=== PATIENT | male | born 1960 | race Caucasian/White ===

== ENCOUNTER 2017-06-13 00:56 | Observation (INO) | payer OTHER ==
--- NOTE | 2017-06-13 01:10 | ED.PDOC ---
History of Present Illness - General Chief Complaint: Chest Pain/[place] Stated Complaint: chest pain Time Seen by Provider: 06/13/17 01:08 Source: patient, Vital Signs reviewed Exam Limitations: no limitations - History of Present Illness Initial Comments: Fadi Mancera 56 y/o male stated that he had chest tightness which started about 10 pm tonight as he was about to go to sleep which comes and goes radiating to his left arm.No diaphoresis,no sob,no N/V He stated just arrived from [facility]. Timing/Duration: 4-6 hours Severity: moderate Location: other - left chest Activities at Onset: rest Prior Chest Pain/Cardiac Workup: no prior chest pain, no prior cardiac workup Worsening Factors: nothing Nitro Today/Relief: no nitro taken today, provided by ED Aspirin Treatment Today: no aspirin today, provided by ED Associated Symptoms: denies symptoms Allergies/Adverse Reactions: Allergies Codeine Adverse Reaction (Verified 06/13/17 01:24) Home Medications: Ambulatory Orders Nf Plexus 1 each PO DAILY 06/13/17 Review of Systems - Review of Systems Constitutional: States: no symptoms reported EENTM: States: no symptoms reported Respiratory: States: no symptoms reported Cardiology: States: see HPI Gastrointestinal/Abdominal: States: no symptoms reported Genitourinary: States: no symptoms reported Musculoskeletal: States: no symptoms reported Skin: States: no symptoms reported Neurological: States: no symptoms reported Endocrine: States: no symptoms reported Hematologic/Lymphatic: States: no symptoms reported Past Medical History (General) - Patient Medical History Hx Congestive Heart Failure: No Hx Diabetes: No Hx Other PMH: Yes - elevated cholesterol corrected by diet Surgical History: other - hernia repair - Social History Hx Tobacco Use: No Hx Chewing Tobacco Use: No - Activities of Daily Living Patient Lives Alone: No - family Family Medical History - Family History Mother Family History: Unknown Hx Cardiac Disease: Yes - CAD/TX-mom;[id number] 70 Hx Family Diabetes: Yes - mom Physical Exam - Physical Exam General Appearance: Alert, No apparent distress Eyes, Ears, Nose, Throat Exam: PERRL/EOMI, normal ENT inspection Neck: non-tender, full range of motion Respiratory: chest non-tender, lungs clear, normal breath sounds Cardiovascular/Chest: normal peripheral pulses, regular rate, rhythm, no gallop , no JVD, no murmur Peripheral Pulses: radial,right: 1+, radial,left: 1+ Gastrointestinal/Abdominal: normal bowel sounds, non tender, soft Extremity: normal range of motion, non-tender, normal inspection, no pedal edema , no calf tenderness Neurologic: no motor/sensory deficits, alert, oriented x 3 Skin Exam: normal color, warm/dry Lymphatic: no adenopathy Progress - Progress Progress: 06/13/17 02:10 Vital Signs - 8 hr 06/13/17 06/13/17 06/13/17 00:56 01:00 01:10 Temperature 99.2 F Pulse Rate 90 90 89 Pulse Rate [ 90 90 89 monitor] Respiratory 20 20 Rate Blood Pressure 123/81 [Right Arm] O2 Sat by Pulse 90 L Oximetry 06/13/17 06/13/17 01:32 02:00 Temperature Pulse Rate Pulse Rate [ 95 H 84 monitor] Respiratory 18 14 Rate Blood Pressure 136/75 126/79 [Right Arm] O2 Sat by Pulse 95 94 L Oximetry 06/13/17 01:10 URINE DRUG SCREEN, 7 ASSAY Stat Chest,1 View [RAD] Stat URINALYSIS Stat 06/13/17 01:13 IV Care:Saline Lock per Protoc QSHIFT 06/13/17 01:15 EKG STAT Laboratory Results - last 24 hr 06/13/17 06/13/17 01:10 01:10 WBC 6.2 RBC 4.53 L Hgb 15.7 Hct 44.4 MCV 97.9 H MCH 34.6 H MCHC 35.4 RDW 13.1 Plt Count 188 MPV 8.6 Absolute Neuts (auto) 2.90 Absolute Lymphs (auto) 2.30 Absolute Monos (auto) 0.60 Absolute Eos (auto) 0.40 Absolute Basos (auto) 0.10 Neutrophils % 47.1 Lymphocytes % 36.7 Monocytes % 9.3 H Eosinophils % 5.9 H Basophils % 1.0 PT 10.8 INR 0.960 PTT (SP) 30.6 D-Dimer, Quantitative < 230 Sodium 138 Potassium 3.8 Chloride 103 Carbon Dioxide 27 Anion Gap 11.8 L BUN 17 Creatinine 0.99 BUN/Creatinine Ratio 17.2 Random Glucose 185 H Serum Osmolality 282.0 Calcium 8.8 Magnesium 2.5 Total Bilirubin < 0.2 L Direct Bilirubin < 0.1 Indirect Bilirubin 0.1 L AST 31 ALT 27 Alkaline Phosphatase 68 Creatine Kinase 79 CK-MB (CK-2) 1.5 CK-MB (CK-2) % Not Reportable Troponin I < 0.02 Serum Total Protein 6.7 Albumin 4.1 - Results/Orders Results/Orders: 06/13/17 01:10 URINE DRUG SCREEN, 7 ASSAY Stat URINALYSIS Stat 06/13/17 01:13 IV Care:Saline Lock per Protoc QSHIFT 06/13/17 01:15 EKG STAT Laboratory Results - last 24 hr 06/13/17 06/13/17 06/13/17 01:10 01:10 02:30 WBC 6.2 RBC 4.53 L Hgb 15.7 Hct 44.4 MCV 97.9 H MCH 34.6 H MCHC 35.4 RDW 13.1 Plt Count 188 MPV 8.6 Absolute Neuts (auto) 2.90 Absolute Lymphs (auto) 2.30 Absolute Monos (auto) 0.60 Absolute Eos (auto) 0.40 Absolute Basos (auto) 0.10 Neutrophils % 47.1 Lymphocytes % 36.7 Monocytes % 9.3 H Eosinophils % 5.9 H Basophils % 1.0 PT 10.8 INR 0.960 PTT (SP) 30.6 D-Dimer, Quantitative < 230 Sodium 138 Potassium 3.8 Chloride 103 Carbon Dioxide 27 Anion Gap 11.8 L BUN 17 Creatinine 0.99 BUN/Creatinine Ratio 17.2 Random Glucose 185 H Serum Osmolality 282.0 Calcium 8.8 Magnesium 2.5 Total Bilirubin < 0.2 L Direct Bilirubin < 0.1 Indirect Bilirubin 0.1 L AST 31 ALT 27 Alkaline Phosphatase 68 Creatine Kinase 79 CK-MB (CK-2) 1.5 CK-MB (CK-2) % Not Reportable Troponin I < 0.02 < 0.02 Serum Total Protein 6.7 Albumin 4.1 - EKG/XRAY/CT EKG: Sinus, no ST T wave changes Comments: Heart rate -86 XRAY: chest - no acute abnormalities Departure - Departure Clinical Impression: Chest pain Qualifiers: Chest pain type: unspecified Qualified Code(s): R07.9 - Chest pain, unspecified Time of Disposition: 03:10 - D/W Dr. Almanzar-Hospitalist Disposition: Admit Patient Condition: Good Referrals: Rodrigo Moreno MD [Primary Care Provider] - 1-2 Weeks Home Medications: Ambulatory Orders Nf Plexus 1 each PO DAILY 06/13/17
[2017-06-13] MEDS ORDERED: ASPIRIN (CHEWABLE) 81 MG TAB PO ONE (01:13)
[2017-06-13] MEDS ORDERED: NITROGLYCERIN 0.4 MG 25 EA TAB SL ONE ×2 (01:13→02:15)
--- NOTE | 2017-06-13 02:11 | RAD ---
Procedure: XR CHEST 1 VIEW Exam Date: 06/13/2017 Ordering Provider: Bar Begum Clinical Indication: Chest pain Comparison: January 16, 2015 Findings: Cardiac silhouette: Magnified by technique Pulmonary vasculature : Normal Mediastinal contour: Normal Aortic contour: Normal Focal lung consolidation: No focal lung consolidation. Left basilar subsegmental atelectasis/scarring. Pleural effusion: None Pneumothorax: None Acute bony or soft tissue abnormality: None Impression: 1. No acute abnormalities in the chest. Electronically signed by: Chacho Delarosa MD 06/13/2017 2:10 AM CDT
[2017-06-13] MEDS ORDERED: ACETAMINOPHEN 325 MG TAB PO PRN (03:43)
[2017-06-13] MEDS ORDERED: NITROGLYCERIN 0.4 MG 25 EA TAB SL PRN (03:43)
[2017-06-13] MEDS ORDERED: SODIUM CHLORIDE 0.9% (FLUSH) 10 ML SYG IV PRN (03:43)
[2017-06-13] MEDS ORDERED: MORPHINE SULFATE INJ 10 MG/ML VIAL IV PRN (03:43)
--- NOTE | 2017-06-13 03:53 | PCM.CORE ---
Physician DVT/VTE - 3-4 High Risk Treatments: Sequential Compression Device Pharmacological: Enoxaparin 40 mg SQ Daily
[2017-06-13] MEDS ORDERED: IV SET AND CAP CHANGE INJ INJ SCH (04:00)
[2017-06-13] MEDS: SUCRALFATE 1 GM/10 ML 1 GM UD PO SCH ×2 (06:28→10:11)
[2017-06-13] MEDS ORDERED: OMEPRAZOLE CAP 20 MG CAP PO SCH (06:30)
[2017-06-13] MEDS ORDERED: SODIUM CHLORIDE 0.9% (FLUSH) 10 ML SYG IV SCH (09:00)
[2017-06-13 09:29] VITALS: O2SAT 96
[2017-06-13 14:03] VITALS: BP 119/77; TEMP 99
--- NOTE | 2017-06-13 20:43 | SSS ---
SUPERVISING PHYSICIAN: Andres Almanzar M.D. DIAGNOSIS AT DISCHARGE: 1. Atypical chest pain, unknown etiology with no evidence of acute myocardial infarction. 2. Hyperlipidemia. 3. History of allergies treated with monthly allergy shots. HISTORY OF PRESENT ILLNESS: Mr. Mancera is a 56 year-old male patient that presented to the Emergency Room early in the morning of 06/13/17 complaining of chest pain described as chest tightness that started Tuesday night as he was going to sleep that noted that the pain had radiated to his left arm. He denied any diaphoresis, shortness of breath or nausea or vomiting. It was noted that he did have a history of recent travel to [place] to see some grandkids travelling well over [address], but denied any lower extremity pain or shortness of breath. Laboratory studies in the Emergency Department initially showed troponin less than 0.02 with EKG showing no acute changes. Given the patient's symptomology and having resolved the pain with a single Nitro, Dr. Begum, E. R. physician, requested the patient be placed in admission for further serial cardiac enzymes to rule out an acute myocardial infarction. The patient was placed in Observation in stable condition. PAST MEDICAL HISTORY: 1. Seasonal allergies. PAST SURGICAL HISTORY: 1. Hernia repair. 2. Colonoscopy. HOME MEDICATIONS: 1. NF Plexus 1 daily. ALLERGIES: CODEINE. FAMILY HISTORY: Positive for cardiovascular disease both in his mother and father. SOCIAL HISTORY: The patient denies ever drinking or smoking. 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 Denies any illicit drug use. REVIEW OF SYSTEMS: CONSTITUTIONAL: The patient denied any fevers or chills. HEENT: Denies any headaches. Does have a history of seasonal allergies for which he gets shots monthly for. No nasal congestion. No nasal drainage. RESPIRATORY: No shortness of breath, cough, sputum production. CARDIOVASCULAR: As noted in the history of present illness. GASTROINTESTINAL: Denies any nausea, vomiting or diarrhea. GENITOURINARY: Denies any dysuria, hematuria or other urinary symptoms. MUSCULOSKELETAL: Denies any symptoms. NEUROLOGIC: Denies any focalizing or otherwise neurological deficits. PHYSICAL EXAMINATION: VITAL SIGNS: On admission to the examination revealed showed temperature 99.2, pulse 98, blood pressure 123/81, respirations 20, satting 90% on room air. At discharge, vital signs showed to be stable with pulse 74, blood pressure 119/77 , temperature 99, satting 96% on nasal cannula at room air with ambulatory studies showing saturations 95% on room air. Admission weight 108.2 kg. GENERAL: The patient appears on examination on the Medical/Surgical floor to be in no acute distress, resting. Well hydrated, well nourished. HEENT: Tympanic membranes were clear bilaterally. Oropharynx was pink and moist without any lesions. NECK: There is no jugular venous distention. Supple, non-tender with full range of motion. CHEST: Clear to auscultation without any wheezing, rhonchi or rales. CARDIOVASCULAR: Heart was regular rate and rhythm with no appreciable murmurs, gallops, or rubs. ABDOMEN: Soft, non-tender. Positive bowel sounds. EXTREMITIES: No clubbing, cyanosis or edema. NEUROLOGIC: He is alert and oriented times three with no obvious neurological deficits. Cranial nerves II-XII are grossly intact. Facial features were symmetrical. Extraocular movements are within normal limits with no nystagmus. LABORATORY: Initial CBC in the emergency department showed normal white count, at discharge white count was 5.5. Hemoglobin and hematocrit were stable at 14.8 and 43.5 with platelet count being at 163,000. Differential was within normal limits. Coagulation studies showed normal PT and PTT as well as a D- dimer at less than 230. Initially on admission to the Emergency Department and prior to discharge less than 200. Chemistries showed normal electrolytes both at admission and discharge with potassium 3.9, BUN 14, creatinine 0.99. Cardiac enzymes times 3 with all troponins being within normal limits with final troponin being 0.02. CPK and CK-MB were both within normal limits. Lipid profile showed triglycerides of 652 with cholesterol 193 with LDL of 73.9 and HDL of 25. Urinalysis showed to be within normal limits. Toxicology screen was negative for all substances tested. RADIOLOGY: Chest x-ray in the Emergency Department prior to admission showed no acute abnormalities of the chest per radiology interpretation. ASSESSMENT: As noted above on final discharge diagnosis. HOSPITAL COURSE: Mr. Mancera was admitted from the [facility] as noted in the history of present illness with ongoing chest pains that resolved with 1 Nitro. He remained pain free through the entire admission. Clinically he remained stable as well as hemodynamically. He did have an ambulatory study prior to discharge and had no recurrence of chest pains, and was maintaining O2 saturations of 95% on room air. PLAN: The patient was discharged to have close clinical followup with Dr. Moreno as scheduled this coming week, and a needed followup appointment with Dr. Parker, his dye range feeder, for considerations for a stress test. He was started on a beta marcelle, Metoprolol 25 mg twice daily, as well as a daily aspirin. He was instructed to do no strenuous exercises until he was seen in followup with Dr. Moreno. He was encouraged to take a blood pressure and keep a log to followup with Dr. Moreno to help in management of his blood pressure. He was told to return to the Emergency Department should he have any recurrence of pain and was given a prescription for Nitro tablets, and encouraged to call 911 should his pain reoccur or go to the clinic and notify Dr. Moreno. At discharge , medications included: 1. Aspirin 325 mg daily. 2. Lopressor 25 mg twice daily. 3. Nitroglycerin tablets 1 sublingual every 5 minutes times 3 as needed for chest pain. All other medications were resumed prior to discharge as were prior to admission. Diet: He is encouraged to follow a low fat low cholesterol diet. Condition at discharge was stable and improved. #[id number] [facility]
[2017-06-14] MEDS ORDERED: ASPIRIN TABLET 325 MG TAB PO SCH (09:00)
== END 2017-06-13 14:10 | disposition home or self-care (01) ==
LOC: ER 00:56 → MS 03:22
PROVIDERS: ADMIT Emergency Medicine; ATTEND Nurse Practitioner Family
DX: R07.89 Other chest pain (principal); E78.5 Hyperlipidemia, unspecified; J30.2 Other seasonal allergic rhinitis; Z79.899 Other long term (current) drug therapy; Z88.6 Allergy status to analgesic agent; Z82.49 Family history of ischemic heart disease and other diseases of the circulatory system

== ENCOUNTER 2017-06-22 08:46 | Emergency (ER) | payer OTHER ==
[2017-06-22 09:03] VITALS: TEMP 97.8
[2017-06-22] MEDS ORDERED: LIDOCAINE VIS-MYLANTA 30 ML UD PO ONE (09:10)
[2017-06-22] MEDS ORDERED: NITROGLYCERIN 0.4 MG 25 EA TAB SL ONE (09:15)
--- NOTE | 2017-06-22 09:38 | ED.PDOC ---
History of Present Illness - General Chief Complaint: Chest Pain/UT Stated Complaint: chest pain Time Seen by Provider: 06/22/17 08:52 Source: patient, RN notes reviewed, Vital Signs reviewed, family, old records Exam Limitations: no limitations - History of Present Illness Initial Comments: Patient presents to ER via private vehicle with c/o of L sided chest pain that started last night. The pain is both dull and tight and radiates to his L arm. No SOB, nausea or diaphoresis. Similar to episodes of chest pain he has been having intermittently for the past 2 weeks. Last night the pain actually started in his L arm and moved to his chest. Finally around 03:00 he took a SLNTG which helped but did not resolve the pain. It began worsening again @ 08: 00 so he came to ER. He was last in ER with the same symptoms on 06/13/17. Cardiac work up at that time was negative. He saw the Film Sound Engineer on 06/16/17 and is scheduled for a nuclear stress test on 07/06/17. Dr. Moreno, his PCP, called and feels the Film Sound Engineer should do the workup sooner. Timing/Duration: intermittent - over the past several weeks. Severity/Quality: moderate - 6/10, dull, tightness Location: other - L anterior chest Chest Pain Radiation: arms - L arm Activities at Onset: rest, sleep Prior Chest Pain/Cardiac Workup: angina Improving Factors: medication - SLNTG Worsening Factors: nothing Nitro Today/Relief: 0.4 mg x 1, mild relief - Did not give a 2nd because his BP dropped to 105/66 Aspirin Treatment Today: 325 mg x 1, provided at home Associated Symptoms: denies symptoms Allergies/Adverse Reactions: Allergies Codeine Adverse Reaction (Verified 06/13/17 01:24) Home Medications: Ambulatory Orders Aspirin 325 mg PO DAILY 06/13/17 Metoprolol Tartrate [Lopressor] 25 mg PO BID #30 tab 06/13/17 Nf Plexus 1 each PO DAILY 06/13/17 Nitroglycerin 0.4 mg Tab [Nitrostat] 1 ea SL Q5MIN PRN #1 bottle 06/13/17 Review of Systems - Review of Systems Constitutional: States: no symptoms reported. Denies: diaphoresis, malaise, weakness Respiratory: States: no symptoms reported. Denies: short of breath Cardiology: States: chest pain. Denies: palpitations, syncope Gastrointestinal/Abdominal: States: no symptoms reported, other - occassional heartburn. Denies: nausea Musculoskeletal: States: see HPI. Denies: back pain Skin: States: no symptoms reported Neurological: States: no symptoms reported All other Systems: No Change from Baseline Past Medical History (General) - Patient Medical History Hx Seizures: No Hx Stroke: No Hx Dementia: No Hx Asthma: No Hx of COPD: No Hx Cardiac Disorders: No Hx Congestive Heart Failure: No Hx Pacemaker: No Hx Hypertension: No Hx Thyroid Disease: No Hx Diabetes: No Hx Gastroesophageal Reflux: No Hx Renal Disease: No Hx Cancer: No Hx of HIV: No Hx Hepatitis C: No Hx MRSA: No - Vaccination History Hx Tetanus, Diphtheria Vaccination: No Hx Influenza Vaccination: Yes Hx Pneumococcal Vaccination: No - Social History Hx Tobacco Use: No Hx Chewing Tobacco Use: No Hx Alcohol Use: No Hx Substance Use: No Hx Substance Use Treatment: No Hx Depression: No Hx Physical Abuse: No Hx Emotional Abuse: No Hx Suspected Abuse: No Family Medical History - Family History Mother Family History: Unknown Living Status: Hx Cardiac Disease: Yes - CAD/UT-mom;[id number] 70 Hx Family Diabetes: Yes - mom Father Hx Cardiac Disease: Yes Physical Exam - Physical Exam General Appearance: Alert, Comfortable, No apparent distress, Well Developed, Well Groomed, Well Hydrated, Well Nourished Neck: non-tender, supple, normal inspection Respiratory: lungs clear, normal breath sounds, no respiratory distress, no accessory muscle use, other - Mild chest wall tenderness - similar to dull pain he is having but not as bad Cardiovascular/Chest: normal peripheral pulses, regular rate, rhythm, no edema, no gallop, no murmur Peripheral Pulses: posterior tibialis,right: 2+, posterior tibialis,left: 2+ Gastrointestinal/Abdominal: normal bowel sounds, non tender, soft, no organomegaly, no pulsatile mass Neurologic: alert, normal mood/affect, oriented x 3 Skin Exam: normal color, warm/dry Comments: Vital Signs 06/22/17 06/22/17 06/22/17 09:00 09:07 09:33 Temperature 97.8 F Pulse Rate [ 88 82 92 H Left Brachial] Respiratory 16 20 Rate Blood Pressure 131/77 105/66 [Right Arm] O2 Sat by Pulse 97 96 Oximetry Progress - Progress Progress: 06/22/17 09:42 Started with GI cocktail w/o improvement. After 1 SLNTG pain decreased to 3-4/10 06/22/17 11:31 Dr. Kinney, Film Sound Engineer, called. He spoke with PCP and they decided to just get him transferred to [facility] to get a definitive diagnosis. Patient is agreeable with plan. Will transfer to [facility]. - Results/Orders Results/Orders: Laboratory Tests 06/22/17 06/22/17 09:15 09:15 WBC 4.2 L RBC 4.57 L Hgb 15.0 Hct 44.7 MCV 97.7 H MCH 32.8 H MCHC 33.5 RDW 13.1 Plt Count 185 MPV 8.2 Absolute Neuts (auto) 2.20 Absolute Lymphs (auto) 1.20 Absolute Monos (auto) 0.40 Absolute Eos (auto) 0.30 Absolute Basos (auto) 0.10 Neutrophils % 52.9 Lymphocytes % 29.0 Monocytes % 10.5 H Eosinophils % 6.4 H Basophils % 1.2 Sodium 136 Potassium 4.2 Chloride 102 Carbon Dioxide 24 Anion Gap 14.2 BUN 20 H Creatinine 1.03 BUN/Creatinine Ratio 19.4 Random Glucose 117 H Serum Osmolality 275.6 Calcium 8.8 Total Bilirubin 1.0 AST 29 ALT 26 Alkaline Phosphatase 50 Creatine Kinase 150 CK-MB (CK-2) 2.5 CK-MB (CK-2) % Not Reportable Troponin I < 0.02 Serum Total Protein 7.3 Albumin 4.3 Globulin 3.0 Albumin/Globulin Ratio 1.4 - EKG/XRAY/CT EKG: Sinus, no ST T wave changes, Unchanged from - 06/13/17 Comments: Rate 85 Departure - Departure Clinical Impression: Chest pain Qualifiers: Chest pain type: unspecified Qualified Code(s): R07.9 - Chest pain, unspecified Time of Disposition: 11:33 Disposition: Transfer to Hospital Condition: Good Departure Forms: ED Discharge - Pt. Copy, Patient Portal Self Enrollment Referrals: Rodrigo Moreno MD [Primary Care Provider] - 1-2 Weeks Home Medications: Ambulatory Orders Aspirin 325 mg PO DAILY 06/13/17 Metoprolol Tartrate [Lopressor] 25 mg PO BID #30 tab 06/13/17 Nf Plexus 1 each PO DAILY 06/13/17 Nitroglycerin 0.4 mg Tab [Nitrostat] 1 ea SL Q5MIN PRN #1 bottle 06/13/17 Transfer to Outside Facility - Transfer Information Accepting Provider:: Dr. Kinney Accepting Facility: [facility] Reason for Transfer: specialized care not available
[2017-06-22 10:24] VITALS: O2SAT 95
[2017-06-22] MEDS ORDERED: ONDANSETRON INJ 4 MG/2 ML VIAL IV ONE (12:27)
[2017-06-22 12:36] VITALS: BP 112/71
== END 2017-06-22 12:36 | disposition short-term general hospital (02) ==
LOC: ER 08:46
DX: R07.9 Chest pain, unspecified (principal); Z88.6 Allergy status to analgesic agent; Z82.49 Family history of ischemic heart disease and other diseases of the circulatory system
CPT/HCPCS: 36415; 80053; 82550; 82553; 84484; 85025; 93005; J2405